=== PATIENT | male | born 1970 | race Caucasian/White ===

== ENCOUNTER 2021-09-04 14:49 | Emergency (ER) | payer OTHER, SELFPAY ==
[2021-09-04 14:58] VITALS: BP 168/92; PULSE 100; RESP 18; TEMP 36.6; O2SAT 100
--- NOTE | 2021-09-04 15:31 | ED.SKABFB ---
HPI - Skin/Abscess/Foreign Bdy General Chief complaint: Skin/Abscess/Foreign Body Stated complaint: rash Time Seen by Provider: 09/04/21 15:22 History of Present Illness HPI narrative: 50-year-old male presents to the emergency room for evaluation of a rash. Patient states 3 days ago he was out mushroom hunting, and noticed a pruritic, erythematous rash to his right wrist and right forearm. Patient states that and has since spread to areas of his right ear and left hand. Patient denies taking any medications to alleviate his symptoms. Related Data Allergies Allergy/AdvReac Type Severity Reaction Status Date / Time No Known Allergies Allergy Verified 09/04/21 15:16 Review of Systems Review of Systems: CONSTITUTIONAL: Denies fever, chills, or sweats. EYES: Denies visual changes, redness, or discharge. ENT: Denies rhinorrhea, congestion, sore throat, or otalgia. CARDIOVASCULAR: Denies chest pain, palpitations, or edema. RESPIRATORY: Denies cough or dyspnea. GASTROINTESTINAL: Denies abdominal pain, nausea, vomiting, or diarrhea. GENITOURINARY: Denies dysuria or hematuria. SKIN: Reports rash to right wrist, right forearm, left hand MUSCULOSKELETAL: Denies back pain, joint pain, or myalgia. NEUROLOGIC: Denies headache, numbness, dizziness, or weakness. PSYCHIATRIC: Denies anxiety or depression. Exam Narrative: GENERAL: Well-appearing, well-nourished, and in no acute distress. HEAD: Normocephalic, atraumatic. EYES: PERRLA and EOMI. CHEST: Clear to auscultation. No respiratory distress. No wheezes rales or rhonchi HEART: Regular rate and rhythm. No murmur heard. Normal peripheral pulses. EXTREMITIES: Normal range of motion. No edema. SKIN: Erythematous, vesicular, grouped rash to the right anterior wrist, right posterior forearm, left hand. NEURO: No focal deficits. Alert and oriented x3. PSYCH: Normal mood and affect. Course Vital Signs Vital signs: Vital Signs Temperature 36.6 C 09/04/21 14:58 Pulse Rate 100 09/04/21 14:58 Respiratory Rate 18 09/04/21 14:58 Blood Pressure 168/92 H 09/04/21 14:58 Pulse Oximetry 100 09/04/21 14:58 Temperature 36.6 C 09/04/21 14:58 Pulse Rate 100 09/04/21 14:58 Respiratory Rate 18 09/04/21 14:58 Blood Pressure 168/92 H 09/04/21 14:58 Pulse Oximetry 100 09/04/21 14:58 Discharge Plan Discharge Clinical Impression: Allergic dermatitis due to poison kami Patient Disposition: Home, Self-Care Condition: Stable Instructions: Antibiotic Form, Contact Dermatitis (ED), Poison Kami (ED) Prescriptions: New prednisone 20 mg tablet 60 mg PO DAILY 5 Days Qty: 15 RF: 0 Follow-up/Referrals: UNKNOWN,DOCTOR [Non-Staff] - Time of Disposition: 15:34
== END 2021-09-04 15:58 | disposition home or self-care (01) ==
PROVIDERS: Emergency Provider Nurse Practitioner Family
DX: L23.7 Allergic contact dermatitis due to plants, except food (principal)
CPT/HCPCS: 96372; 99283; J1100